=== PATIENT | male | born 1990 | race Caucasian/White ===

== ENCOUNTER 2019-04-17 15:04 | Emergency (ER) | payer OTHER ==
[~2019-04-17] VITALS: Ht 180.3 cm; Wt 82.0 kg
[2019-04-17 16:07] VITALS: BP 107/62
[2019-04-17] MEDS ORDERED: IBUPROFEN 600MG TABLET PO ONE (17:15)
[2019-04-17] MEDS ORDERED: ACETAMINOPHEN 500MG TABLET PO ONE (17:15)
== END 2019-04-17 18:05 | disposition home or self-care (01) ==
LOC: ER 15:04
DX: S93.691A Other sprain of right foot, initial encounter (principal); F17.210 Nicotine dependence, cigarettes, uncomplicated; W01.0XXA Fall on same level from slipping, tripping and stumbling without subsequent striking against object, initial encounter; Y93.89 Activity, other specified; Y92.018 Other place in single-family (private) house as the place of occurrence of the external cause
CPT/HCPCS: 73630; 99283; Z7610